=== PATIENT | female | born 1965 | race Caucasian/White ===

== ENCOUNTER 2021-05-11 20:28 | Emergency (ER) | payer OTHER ==
[~2021-05-11] VITALS: Ht 152.4 cm; Wt 89.4 kg
[2021-05-11] MEDS ORDERED: HYDROCHLOROTH12.5 M1 PO (20:37)
[2021-05-11] MEDS ORDERED: PROTONIX40 M2 PO (20:37)
[2021-05-11] MEDS ORDERED: SERTRALINE HCL150 MG PO (20:37)
[2021-05-11] MEDS ORDERED: XANAX 0.5 MG0.5 MG PO (20:37)
[2021-05-11] MEDS ORDERED: MEDROLDOSEPACK PO (22:59)
[2021-05-11] MEDS ORDERED: FLEXERIL PO (22:59)
[2021-05-11] MEDS ORDERED: HYDROCODON-ACE1 EAC8 PO (23:04)
[2021-05-11 23:05] VITALS: BP 169/97
== END 2021-05-11 23:24 | disposition home or self-care (01) ==
LOC: M.ERS 20:28
DX: R07.81 Pleurodynia (principal); I10 Essential (primary) hypertension; K21.9 Gastro-esophageal reflux disease without esophagitis; F32.9 Major depressive disorder, single episode, unspecified; F41.9 Anxiety disorder, unspecified; Z79.899 Other long term (current) drug therapy